=== PATIENT | female | born 1995 | race Two or more races ===

== ENCOUNTER 2017-05-12 11:43 | Emergency (ER) | payer SELFPAY ==
[2017-05-12 11:58] VITALS: BP 100/67; PULSE 74; TEMP 98.2; BMI 16.7
--- NOTE | 2017-05-12 12:52 | PDOC ---
History of Present Illness - General Chief Complaint: Headache Stated Complaint: HEADACHE, DIZZINESS Time Seen by Provider: 05/12/17 12:41 Past History - Past Medical History Allergies/Adverse Reactions: Allergies Allergy/AdvReac Type Severity Reaction Status Date / Time No Known Allergies Allergy Verified 05/12/17 14:45 Home Medications: Ambulatory Orders NK [No Known Home Medication] 05/12/17 Asthma: Yes - Immunization History Immunization Up to Date: Yes - Suicide/Smoking/Psychosocial Hx Smoking History: Never smoked Hx Alcohol Use: No Drug/Substance Use Hx: No *Physical Exam - Vital Signs Last Vital Signs Temp Pulse Resp BP Pulse Ox 98.2 F 74 20 100/67 100 05/12/17 11:56 05/12/17 11:56 05/12/17 11:56 05/12/17 11:56 05/12/17 11:56 *DC/Admit/Observation/Transfer Diagnosis at time of Disposition: lbme - Discharge Dispostion Disposition: LEFT BEFORE [facility]FF[facility]U
== END 2017-05-12 13:22 | disposition left against medical advice (07) ==
LOC: JERFT 11:43
DX: Z53.21 Procedure and treatment not carried out due to patient leaving prior to being seen by health care provider (principal)
CPT/HCPCS: 99281-25

== ENCOUNTER 2017-05-12 14:43 | Emergency (ER) | payer SELFPAY ==
[2017-05-12 14:49] VITALS: BP 100/67; PULSE 67; TEMP 98.4; BMI 17.3
[2017-05-12] MEDS ORDERED: ONDANSETRON *ODT* 4 MG TABLET SL ONE (16:34)
[2017-05-12] MEDS ORDERED: ACETAMINOPHEN 500 MG TABLET (FP) PO ONE (16:34)
[2017-05-12] MEDS ORDERED: ONDANSETRON *ODT* 4 MG TABLET ONE (16:37)
[2017-05-12] MEDS ORDERED: ACETAMINOPHEN 500 MG TABLET (FP) ONE (16:37)
--- NOTE | 2017-05-12 16:39 | PDOC ---
History of Present Illness - General Chief Complaint: Headache Stated Complaint: HEADACHE Time Seen by Provider: 05/12/17 16:32 History Source: Patient Exam Limitations: No Limitations - History of Present Illness Initial Comments: 05/12/17 16:36 My chief complaint: Intermittent headache with nausea for 4 days vomited once yesterday and dry cough since yesterday, sore throat yesterday History of present illness: Patient is a 21-year-old female with no significant medical problems except for asthma here today complaining of intermittent headache for 4 days with nausea. Patient also reports vomiting once yesterday and developing a dry cough since yesterday with a sore throat. She reports that headache presently is a 4 out of 10. Patient reports having abdominal discomfort generalized. Patient is unsure whether or not she might be does not use control. Patient reports presently feeling nauseous also. Denies any sick contacts Timing/Duration: intermittent Severity: mild Associated Symptoms: reports: cough, headaches (intermittent for 4 days, abdominal discomfort), nausea/vomiting (nausea for 4 days, vomited once yesterdasy ) Past History - Past Medical History Allergies/Adverse Reactions: Allergies Allergy/AdvReac Type Severity Reaction Status Date / Time No Known Allergies Allergy Verified 05/12/17 14:45 Home Medications: Ambulatory Orders NK [No Known Home Medication] 05/12/17 Asthma: Yes - Immunization History Immunization Up to Date: Yes - Suicide/Smoking/Psychosocial Hx Smoking History: Never smoked Hx Alcohol Use: No Drug/Substance Use Hx: No Review of Systems - Review of Systems Able to Perform ROS?: Yes Constitutional: Yes: Chills, Fever HEENTM: Yes: Throat Pain Respiratory: Yes: Cough (dry ) Cardiac (ROS): No: Symptoms Reported ABD/GI: Yes: Nausea (4 days), Vomiting (yesterday), Other (abdominal discomfort generalized) : No: Symptoms Reported Musculoskeletal: No: Symptoms Reported Integumentary: No: Symptoms Reported Neurological: Yes: Headache (b/l temporal area) *Physical Exam - Vital Signs Last Vital Signs Temp Pulse Resp BP Pulse Ox 98.4 F 67 18 100/67 100 05/12/17 14:46 05/12/17 14:46 05/12/17 14:46 05/12/17 14:46 05/12/17 14:46 - Physical Exam General Appearance: Yes: Appropriately Dressed HEENT: positive: EOMI, CAREN, TMs Normal, Pharyngeal Erythema. negative: Tonsillar Exudate, Tonsillar Erythema Neck: negative: Lymphadenopathy (R), Lymphadenopathy (L) Respiratory/Chest: positive: Lungs Clear, Normal Breath Sounds. negative: Chest Tender, Respiratory Distress Cardiovascular: positive: Regular Rhythm, Regular Rate, S1, S2 Gastrointestinal/Abdominal: positive: Normal Bowel Sounds, Soft. 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 negative: Numbness, Sensory Deficit Medical Decision Making - Medical Decision Making 05/12/17 16:37 Patient is a 21-year-old female with no significant medical problems except for asthma here today complaining of intermittent headache for 4 days with nausea. Patient also reports vomiting once yesterday and developing a dry cough since yesterday with a sore throat. She reports that headache presently is a 4 out of 10. Patient reports having abdominal discomfort generalized. Patient is unsure whether or not she might be does not use control. Patient reports presently feeling nauseous also. Denies any sick contacts. r/o influenza A or B Rule out strep throat Rule out + upper respiratory infection Plan: Throat C and asked rapidb negative Influenza a and B rapid negative Urine hCG positive Acetaminophen 1000 mg by mouth now Zofran 4 mg sublingual now 05/12/17 16:39 05/12/17 17:12 05/12/17 17:59 05/12/17 18:36 *DC/Admit/Observation/Transfer Diagnosis at time of Disposition: Positive test Qualifiers: Weeks of gestation: unspecified Qualified Code(s): Z34.90 - Encounter for supervision of normal , unspecified, unspecified trimester Upper respiratory infection Qualifiers: URI type: unspecified viral URI Qualified Code(s): J06.9 - Acute upper respiratory infection, unspecified - Discharge Dispostion Disposition: HOME Condition at time of disposition: Stable - Referrals Referrals: Regina Baxter MD [Staff Physician] - - Patient Instructions Additional Instructions: Follow-up with your STITCH CLEANER as soon as possible Eat foods as tolerated Do not take any ibuprofen or [id number] medications without consulting sleeve setter safety stitch including cough preparations Return to emergency room if any pain in her lower abdomen or any vaginal bleeding Drink a lot a fluids and rest You may take acetaminophen as needed as directed by wood gouger for pain or fever Patient voiced understanding of discharge instructions and all questions were answered
== END 2017-05-12 18:38 | disposition home or self-care (01) ==
LOC: JERFT 14:43
DX: O99.89 Other specified diseases and conditions complicating pregnancy, childbirth and the puerperium (principal); J06.9 Acute upper respiratory infection, unspecified; J45.909 Unspecified asthma, uncomplicated; Z3A.01 Less than 8 weeks gestation of pregnancy
CPT/HCPCS: 84703; 87070; 87430; 87804; 99281-25

== ENCOUNTER 2017-09-15 18:23 | Emergency (ER) | payer OTHER ==
--- NOTE | 2017-09-15 18:52 | PDOC ---
Rapid Medical Evaluation Chief Complaint: Cold Symptoms Time Seen by Provider: 09/15/17 18:49 Medical Evaluation: Allergies Allergy/AdvReac Type Severity Reaction Status Date / Time No Known Allergies Allergy Verified 09/15/17 18:48 09/15/17 18:50 The patient presents with a chief complaint of: [Chills, bodyaches, cough, Vomiting. Fever. No abdominal pain, + movement, no vaginal bleeding or discharge. 23 weeks I have performed a brief in-person evaluation of this patient. Pertinent physical exam findings: vss, [Abdomen is gravid, lungs clear, RRR] I have ordered the following: [Rapid influenza] The patient will proceed to the ED for further evaluation. Discharge Disposition - Diagnosis Body aches - Referrals - Patient Instructions - Post Discharge Activity
[2017-09-15] MEDS ORDERED: ACETAMINOPHEN 500 MG TABLET (FP) PO ONE (19:21)
[2017-09-15] MEDS ORDERED: ACETAMINOPHEN 500 MG TABLET (FP) ONE (19:23)
[2017-09-15] MEDS ORDERED: ONDANSETRON *ODT* 4 MG TABLET SL ONE (19:25)
[2017-09-15] MEDS ORDERED: SODIUM CHLORIDE 1,000 ML IV STA (19:25)
--- NOTE | 2017-09-15 19:30 | PDOC ---
History of Present Illness - General Chief Complaint: Cold Symptoms Stated Complaint: COLD SYMPTOMS (24 WKS ) Time Seen by Provider: 09/15/17 18:49 History Source: Patient Exam Limitations: No Limitations - History of Present Illness Initial Comments: 09/15/17 19:23 22 yr female with c/o body aches chills vomited x2 . Pt is 23 weeks denies abd pain or diarrhea no urinary complaints. Severity: reports: moderate Past History - Past Medical History Allergies/Adverse Reactions: Allergies Allergy/AdvReac Type Severity Reaction Status Date / Time No Known Allergies Allergy Verified 09/15/17 18:48 Home Medications: Ambulatory Orders NK [No Known Home Medication] 05/12/17 Asthma: Yes COPD: No - Immunization History Immunization Up to Date: Yes - Suicide/Smoking/Psychosocial Hx Smoking History: Never smoked Information on smoking cessation initiated: No Hx Alcohol Use: No Drug/Substance Use Hx: No Substance Use Type: None *Physical Exam - Vital Signs Last Vital Signs Temp Pulse Resp BP Pulse Ox 99.5 F 128 H 18 92/50 100 09/15/17 18:50 09/15/17 18:50 09/15/17 18:50 09/15/17 18:50 09/15/17 18:50 - Physical Exam General Appearance: Yes: Nourished, Appropriately Dressed HEENT: positive: EOMI, CAREN, TMs Normal, Pharyngeal Erythema. negative: Tonsillar Exudate, Tonsillar Erythema Neck: positive: Supple. 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 will check for strep and flu IVF , zofran 09/15/17 19:56 20 gauge placed to right wrist IVF infusing wide open UA pending signed out to [facility] Block for further management. 09/16/17 08:53 *DC/Admit/Observation/Transfer Diagnosis at time of Disposition: Viral syndrome - Discharge Dispostion Disposition: HOME Condition at time of disposition: Stable - Referrals Referrals: Regina Baxter MD [Staff Physician] - Naman Delgado MD [Primary Care Provider] - - Patient Instructions Additional Instructions: drink pleanty of fluids water, milk, juice jello, ice pops dry crackers, dry toast white rice plain soup you should be drinking at least 2 liters of water every day while your urine should be light yellow to clear eat small well balanced meals every 4hrs to keep your sugar levels up take tylenol 650mg every 4-6hrs for fever follow with your HOME CARE ATTENDANT this week for follow up return to ER for any worsening symptoms - Post Discharge Activity
[2017-09-15] MEDS ORDERED: ONDANSETRON *ODT* 4 MG TABLET ONE (19:54)
--- NOTE | 2017-09-15 20:50 | PDOC ---
*Physical Exam - Vital Signs Last Vital Signs Temp Pulse Resp BP Pulse Ox 99.5 F 128 H 18 92/50 100 09/15/17 18:50 09/15/17 18:50 09/15/17 18:50 09/15/17 18:50 09/15/17 18:50 - Physical Exam General Appearance: Yes: Appropriately Dressed. No: Apparent Distress HEENT: positive: Normal Voice Neck: positive: Supple Respiratory/Chest: negative: Respiratory Distress Gastrointestinal/Abdominal: negative: Tender Integumentary: positive: Dry, Warm Neurologic: positive: Fully Oriented, Alert, Normal Mood/Affect <Nyla Brown - Last Filed: 09/15/17 21:06> - Vital Signs Last Vital Signs Temp Pulse Resp BP Pulse Ox 98.9 F 100 H 20 96/52 100 09/15/17 21:43 09/15/17 21:43 09/15/17 21:43 09/15/17 21:43 09/15/17 18:50 <Sahara Cortez - Last Filed: 09/16/17 16:12> ED Treatment Course - ADDITIONAL ORDERS Additional order review: 09/15/17 19:00 Influenza Types A,B Antigen (JOSE) - Final Nasopharyngeal Swab - Final 09/15/17 19:00 Group A Strep Rapid Antigen - Final Throat - Medications Given in the ED: ED Medications Discontinued Medications Generic Name Dose Route Start Last Admin Trade Name Freq PRN Reason Stop Dose Admin Acetaminophen 1,000 mg 09/15/17 19:21 09/15/17 19:24 Tylenol - PO 09/15/17 19:22 1,000 mg ONCE ONE Administration Sodium Chloride 1,000 mls @ 1,000 mls/hr 09/15/17 19:25 09/15/17 19:55 Normal Saline - IV 09/15/17 20:24 1,000 mls/hr ASDIR STA Administration Ondansetron HCl 4 mg 09/15/17 19:25 09/15/17 19:55 Zofran Odt - SL 09/15/17 19:26 4 mg ONCE ONE Administration <Nyla Brown - Last Filed: 09/15/17 21:06> - ADDITIONAL ORDERS Additional order review: 09/15/17 19:00 Influenza Types A,B Antigen (JOSE) - Final Nasopharyngeal Swab - Final 09/15/17 19:00 Group A Strep Rapid Antigen - Final Throat - Medications Given in the ED: ED Medications Discontinued Medications Generic Name Dose Route Start Last Admin Trade Name Norma PRN Reason Stop Dose Admin Acetaminophen 1,000 mg 09/15/17 19:21 09/15/17 19:24 Tylenol - PO 09/15/17 19:22 1,000 mg ONCE ONE Administration Sodium Chloride 1,000 mls @ 1,000 mls/hr 09/15/17 19:25 09/15/17 19:55 Normal Saline - IV 09/15/17 20:24 1,000 mls/hr ASDIR STA Administration Ondansetron HCl 4 mg 09/15/17 19:25 09/15/17 19:55 Zofran Odt - SL 09/15/17 19:26 4 mg ONCE ONE Administration <Sahara Cortez - Last Filed: 09/16/17 16:12> Medical Decision Making - Medical Decision Making 09/15/17 21:06 Pt feeling better w/ improved vitals. UA w/ 2+ketones, no e/o infxn. Pt stable to be transferred to L&D <Nyla Brown - Last Filed: 09/15/17 21:06> *DC/Admit/Observation/Transfer <Nyla Brown - Last Filed: 09/15/17 21:06> <Sahara Cortez - Last Filed: 09/16/17 16:12> Diagnosis at time of Disposition: Viral syndrome - Discharge Dispostion Disposition: HOME Condition at time of disposition: Stable - Referrals Referrals: Regina Baxter MD [Staff Physician] - Naman Delgado MD [Primary Care Provider] - - Patient Instructions Additional Instructions: drink pleanty of fluids water, milk, juice jello, ice pops dry crackers, dry toast white rice plain soup you should be drinking at least 2 liters of water every day while your urine should be light yellow to clear eat small well balanced meals every 4hrs to keep your sugar levels up take tylenol 650mg every 4-6hrs for fever follow with your 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
[2017-09-15 21:01] LABS: URINE APPEARANCE CLEAR; URINE BILIRUBIN NEGATIVE (NEGATIVE); URINE BLOOD NEGATIVE (NEGATIVE); URINE COLOR LTYELLOW; URINE GLUCOSE (UA) NEGATIVE (NEGATIVE); URINE KETONE 2+ (NEGATIVE); URINE LEUK ESTERASE NEGATIVE (NEGATIVE); URINE NITRITE NEGATIVE (NEGATIVE); URINE PROTEIN NEGATIVE (NEGATIVE); URINE UROBILINOGEN NEGATIVE mg/dL (0.2-1.0)
[2017-09-15 22:31] VITALS: BP 96/52; PULSE 100
[2017-09-15 22:38] VITALS: TEMP 98.9
== END 2017-09-15 22:22 | disposition home or self-care (01) ==
LOC: JER 18:23
PROC: 3E0337Z Introduction of Electrolytic and Water Balance Substance into Peripheral Vein, Percutaneous Approach (ICD-10-PCS; principal; 2017-09-15)
DX: O26.892 Other specified pregnancy related conditions, second trimester (principal); O98.512 Other viral diseases complicating pregnancy, second trimester; B34.9 Viral infection, unspecified; Z3A.23 23 weeks gestation of pregnancy
CPT/HCPCS: 81003; 87070; 87430; 87804; 96360; 99281-25